=== PATIENT | male | born 1960 | race Caucasian/White ===

== ENCOUNTER 2018-09-08 06:54 | Day surgery (SDC) | payer OTHER ==
[2018-09-08] MEDS ORDERED: Lidocaine 1% with EPINEPHrine 1:100,000 50 ML MDV ONE (06:56)
[2018-09-08] MEDS ORDERED: Bupivacaine 0.5% 50 ML MDV ONE (06:56)
[2018-09-08] MEDS ORDERED: Midazolam 1 MG/ML 2 ML SDV ONE (07:32)
[2018-09-08] MEDS ORDERED: fentaNYL 100 MCG/2 ML SDV ONE (07:32)
[2018-09-08] MEDS ORDERED: Propofol 200 MG/20 ML SDV ONE ×2 (07:32→08:40)
[2018-09-08] MEDS ORDERED: Dextrose 5%-Lactated Ringers 1,000 ML IV SCH (07:45)
[2018-09-08] MEDS: ceFAZolin 2 GM in Premix Bag 1 BAG IV ONE ×2 (07:45→08:25)
[2018-09-08] MEDS ORDERED: Acetaminophen/HYDROcodone 325-5 MG Tab PO PRN (10:30)
--- NOTE | 2018-09-08 11:31 | OR ---
DATE OF PROCEDURE: 09/08/2018 PREOPERATIVE DIAGNOSIS: Umbilical hernia. POSTOPERATIVE DIAGNOSIS: Umbilical hernia. PROCEDURE: Repair of umbilical hernia with a 6.4 cm in diameter, Ventralex mesh patch with straps. SURGEON: Maicol Dowell MD ANESTHESIA: IV anesthesia with monitored anesthesia care. INDICATION: This 58-year-old white male is here for repair of his umbilical hernia. He denies predisposing factors for hernia formation. No signs or symptoms of incarceration or obstruction. I counseled him for repair of this with mesh, including risks and alternatives, and he gave his informed consent to proceed. DESCRIPTION OF PROCEDURE: The patient was placed in the left lateral decubitus position. IV anesthesia was administered by the Anesthesia Service. Time-out was held. The leg compression stockings were in place and used during the entire procedure. An infraumbilical semicircular incision was made. The umbilical hernia was divided from the overlying umbilical skin. The contents, which consisted of omentum, were excised and sent to the lab. The defect was large enough that we could get a 6.4 cm in diameter, Ventralex mesh patch with straps through the defect. This was then done. The straps were grasped and elevated, bringing the mesh nicely against the posterior aspect of the fascia. The straps were cut to appropriate length and anchored to the anterior fascia with 2-0 Vicryl suture. A 2-0 Vicryl suture was used to close the fascia over the mesh. This stitch was also used to anchor the umbilical skin to the underlying fascia. All looked well. The skin was closed with a subcuticular stitch of 4-0 Vicryl. Dermabond was applied. The patient tolerated the procedure well and was brought to the recovery room in good condition. Maicol Dowell MD /[id number]
[2018-09-08 11:35] VITALS: BP 121/67
== END 2018-09-08 11:40 | disposition home or self-care (01) ==
LOC: JP.SDS 06:54
PROVIDERS: ATTEND Surgery
DX: K42.9 Umbilical hernia without obstruction or gangrene (principal); K21.9 Gastro-esophageal reflux disease without esophagitis; I10 Essential (primary) hypertension
CPT/HCPCS: 49585; A9270; C1781; J0690; J2250; J2704; J3010; J3490; J7042

== ENCOUNTER 2020-01-31 02:19 | Emergency (ER) | payer OTHER ==
[2020-01-31] MEDS ORDERED: Lidocaine 1% with EPINEPHrine 1:100,000 50 ML MDV INFILT ONE (02:45)
[2020-01-31] MEDS ORDERED: Bacitracin Oint 1 GM U/D Packet TOP ONE (02:46)
[2020-01-31 03:03] VITALS: BP 140/75; PULSE 57
--- NOTE | 2020-01-31 03:27 | EDM.PDOC ---
ED HPI GENERAL MEDICAL PROBLEM - General Chief Complaint: Laceration Stated Complaint: CUT LEFT FOOT Time Seen by Provider: 01/31/20 02:40 Source of Information: Reports: Patient, Family History Limitations: Reports: Intoxication - History of Present Illness INITIAL COMMENTS - FREE TEXT/NARRATIVE: 59-year-old male arrives with a laceration to his left lower leg. He struck his leg on the edge of a dock about 2-1/2 hours ago, did not realize he had a significant injury until about 1/2-hour ago when he noticed bleeding. No other injury. Onset: Sudden Duration: Hour(s): (2-1/2 hours ago) Location: Reports: Lower Extremity, Left Associated Symptoms: Reports: No Other Symptoms - Related Data Allergies Allergy/AdvReac Type Severity Reaction Status Date / Time No Known Allergies Allergy Verified 01/31/20 02:34 Home Meds: Home Meds Lisinopril 30 mg PO DAILY 11/14/15 [History] Zonisamide [Zonegran] 300 mg PO DAILY 11/14/15 [History] amLODIPine Besylate [Norvasc] 10 mg PO DAILY 02/19/18 [History] Aspirin [Adult Aspirin] 81 mg PO DAILY 09/06/18 [History] Glucosa Hernández 2KCl/Chondroitin Hernández [Glucosamine Chondroitin Caplet] 1 each PO DAILY 09/06/18 [History] Ibuprofen [Advil] 200 mg PO DAILY PRN 09/06/18 [History] Multivitamin with Minerals [Multiple Vitamin] 1 tab PO DAILY 09/06/18 [History] Omeprazole Magnesium [Prilosec Otc] 20 mg PO DAILY 09/06/18 [History] Past Medical History HEENT History: Reports: Impaired Vision, Other (See Below) Other HEENT History: cough at night Cardiovascular History: Reports: Hypertension Gastrointestinal History: Reports: GERD Musculoskeletal History: Reports: Other (See Below) Other Musculoskeletal History: decreased L shoulder movement Neurological History: Reports: Seizure Endocrine/Metabolic History: Reports: None - Infectious Disease History Infectious Disease History: Reports: Chicken Pox - Past Surgical History Head Surgeries/Procedures: Reports: None HEENT Surgical History: Reports: Tonsillectomy Cardiovascular Surgical History: Reports: None GI Surgical History: Reports: Colostomy Endocrine Surgical History: Reports: None Neurological Surgical History: Reports: None Musculoskeletal Surgical History: Reports: Shoulder Surgery Dermatological Surgical History: Reports: None Social & Family History - Family History Family Medical History: Noncontributory - Tobacco Use Smoking Status *Q: Former Smoker Used Tobacco, but Quit: Yes Month/Year Tobacco Last Used: 2009 Second Hand Smoke Exposure: No - Caffeine Use Caffeine Use: Reports: Coffee - Alcohol Use Days Per Week of Alcohol Use: 2 Number of Drinks Per Day: 6 Total Drinks Per Week: 12 - Recreational Drug Use Recreational Drug Use: No ED ROS GENERAL - Review of Systems Review Of Systems: See Below Constitutional: Denies: Fever, Chills Respiratory: Denies: Shortness of Breath Cardiovascular: Denies: Chest Pain GI/Abdominal: Denies: Nausea, Vomiting Musculoskeletal: Reports: No Symptoms (No bony tenderness in the leg) Neurological: Reports: Other (Patient is fairly intoxicated but cooperative) ED EXAM, SKIN/RASH Exam: See Below Exam Limited By: Intoxication General Appearance: Alert, No Apparent Distress Respiratory/Chest: No Respiratory Distress Cardiovascular: Regular Rate, Rhythm Extremities: Other (Exam is otherwise limited the lower extremities. The right leg is normal, the left leg has a 9 cm V-shaped flap laceration fairly deep into the subcutaneous tissue on the lower anterior leg above the ankle. Bleeding is controlled.) Course - Vital Signs Last Recorded V/S: Last Vital Signs Temp 96.2 F L 01/31/20 02:42 Pulse 57 L 01/31/20 02:42 Resp 16 01/31/20 02:42 BP 140/75 01/31/20 02:42 Pulse Ox 97 01/31/20 02:42 - Orders/Labs/Meds Meds: Medications Discontinued Medications Generic Name Dose Route Start Last Admin Trade Name Ky PRN Reason Stop Dose Admin Bacitracin 1 dose 01/31/20 02:46 01/31/20 03:11 Bacitracin Oint 1 Gm TOP 01/31/20 02:47 1 dose ONETIME ONE Administration Lidocaine/Epinephrine 30 ml 01/31/20 02:45 01/31/20 03:11 Xylocaine 1% With Epinephrine 1:100,000 INFILT 01/31/20 02:46 30 ml ONETIME ONE Administration - Re-Assessments/Exams Free Text/Narrative Re-Assessment/Exam: 01/31/20 03:24 The area was infiltrated with 1% lidocaine and epinephrine. After anesthesia, the wound was thoroughly cleaned with saline and flushed several times with 10 cc of sterile saline. There was no foreign bodies found. Four 4-0 Vicryl sutures were used to close the subcutaneous tissue and 10 additional 4-0 Ethilon sutures were used to close the outside of the laceration. Topical bacitracin and a bandage was applied, his tetanus is current. He will keep the wound covered and clean, elevate when able, and sutures can be removed next Tuesday in 9 days. He will recheck sooner if concerns of infection or not healing satisfactorily. Departure - Departure Time of Disposition: 03:37 Disposition: Home, Self-Care 01 Clinical Impression: Laceration of left lower leg Qualifiers: Encounter type: initial encounter Qualified Code(s): S81.812A - Laceration without foreign body, left lower leg, initial encounter - Discharge Information Instructions: Laceration Care, Adult, [id number] Referrals: Mariano Jaime MD [Primary Care Provider] - Forms: ED Department Discharge Care Plan Goals: Keep wound covered and clean while healing, elevation may help with throbbing or pain. Ibuprofen or naproxen will also be helpful. Increase activity as tolerated and return February 07Tuesday afternoon for suture removal. If you are returning to the emergency room for suture removal Tuesday morning would also be appropriate. Recheck sooner if concerns of infection or not healing satisfactorily.
== END 2020-01-31 03:37 | disposition home or self-care (01) ==
LOC: JP.ED 02:19
DX: S81.812A Laceration without foreign body, left lower leg, initial encounter (principal); I10 Essential (primary) hypertension; K21.9 Gastro-esophageal reflux disease without esophagitis; Z87.891 Personal history of nicotine dependence; Z79.82 Long term (current) use of aspirin; Z79.899 Other long term (current) drug therapy; W22.8XXA Striking against or struck by other objects, initial encounter
CPT/HCPCS: 12034; 99282-25

== ENCOUNTER 2020-02-09 06:58 | Emergency (ER) | payer OTHER ==
--- NOTE | 2020-02-09 07:47 | EDM.PDOC ---
ED HPI GENERAL MEDICAL PROBLEM - General Stated Complaint: REMOVAL OF STITCHES Time Seen by Provider: 02/09/20 07:41 Source of Information: Reports: Patient History Limitations: Reports: No Limitations - History of Present Illness INITIAL COMMENTS - FREE TEXT/NARRATIVE: pt returns to have sutures removed. - Related Data Allergies Allergy/AdvReac Type Severity Reaction Status Date / Time No Known Allergies Allergy Verified 01/31/20 02:34 Home Meds: Home Meds Lisinopril 30 mg PO DAILY 11/14/15 [History] Zonisamide [Zonegran] 300 mg PO DAILY 11/14/15 [History] amLODIPine Besylate [Norvasc] 10 mg PO DAILY 02/19/18 [History] Aspirin [Adult Aspirin] 81 mg PO DAILY 09/06/18 [History] Glucosa Hernández 2KCl/Chondroitin Hernández [Glucosamine Chondroitin Caplet] 1 each PO DAILY 09/06/18 [History] Ibuprofen [Advil] 200 mg PO DAILY PRN 09/06/18 [History] Multivitamin with Minerals [Multiple Vitamin] 1 tab PO DAILY 09/06/18 [History] Omeprazole Magnesium [Prilosec Otc] 20 mg PO DAILY 09/06/18 [History] Past Medical History HEENT History: Reports: Impaired Vision, Other (See Below) Other HEENT History: cough at night Cardiovascular History: Reports: Hypertension Gastrointestinal History: Reports: GERD Musculoskeletal History: Reports: Other (See Below) Other Musculoskeletal History: decreased L shoulder movement Neurological History: Reports: Seizure Endocrine/Metabolic History: Reports: None - Infectious Disease History Infectious Disease History: Reports: Chicken Pox - Past Surgical History Head Surgeries/Procedures: Reports: None HEENT Surgical History: Reports: Tonsillectomy Cardiovascular Surgical History: Reports: None GI Surgical History: Reports: Colostomy Endocrine Surgical History: Reports: None Neurological Surgical History: Reports: None Musculoskeletal Surgical History: Reports: Shoulder Surgery Dermatological Surgical History: Reports: None Social & Family History - Family History Family Medical History: Noncontributory - Caffeine Use Caffeine Use: Reports: Coffee ED ROS GENERAL - Review of Systems Review Of Systems: See Below Constitutional: Reports: No Symptoms ED EXAM, SKIN/RASH Exam: See Below Text/Narrative:: pt returns to have sutures removed. Extremities: Other (pt has a wound on his left lower leg. He does have some redness around the wound. Sutures were removed without dificulty there is no drainage around the stitiches. The wound was steri stripped for support. I feel some of the redness is stitch reaction. Pt is to leave the steri strips in place for the next 3 days. ) Neurological: Alert, Oriented, Normal Cognition Departure - Departure Time of Disposition: 07:51 Disposition: Home, Self-Care 01 Clinical Impression: Visit for suture removal - Discharge Information Care Plan Goals: rtc if problems.
== END 2020-02-09 07:30 ==
LOC: JP.EDOUT 06:58 → JP.ED 06:58 → EDSTATUS 07:39
DX: Z48.02 Encounter for removal of sutures (principal)
CPT/HCPCS: 99281

== ENCOUNTER 2023-10-25 11:25 | Emergency (ER) | payer OTHER ==
[2023-10-25 14:50] LABS: BASOPHILS PERCENT AUTO 0.2 % (0.1-1.3); EOSINOPHILS ABSOLUTE AUTO 0.03 K/uL (0.00-0.40); EOSINOPHILS PERCENT AUTO 0.2 % (0.0-5.4); HEMATOCRIT 46.4 % (38.4-49.7); HEMOGLOBIN 16.1 g/dL (12.9-16.9); IMMATURE GRAN ABSOLUTE AUTO 0.03 K/uL (0.00-0.23); IMMATURE GRAN PERCENT AUTO 0.2 % (0.0-0.7); LYMPHOCYTES ABSOLUTE AUTO 1.04 K/uL (0.8-3.3); LYMPHOCYTES PERCENT AUTO 8.6 % (11.4-47.7); MEAN CORPUSCULAR HGB CONC 34.7 g/dL (31.6-35.5); MEAN CORPUSCULAR VOLUME 89.4 fL (81.4-99.0); MONOCYTES ABSOLUTE AUTO 1.32 K/uL (0.20-0.90); MONOCYTES PERCENT AUTO 10.9 % (3.3-12.6); NEUTROPHILS ABSOLUTE AUTO 9.72 K/uL (1.0-7.6); NEUTROPHILS PERCENT AUTO 79.9 % (40.0-78.1); PLATELET COUNT,PLT 129 K/uL (130-375); RED BLOOD CELL COUNT 5.19 M/uL (4.14-5.76); WHITE BLOOD CELL COUNT,WBC 12.2 K/uL (3.2-11.0)
[2023-10-25 14:54] LABS: BASOPHILS ABSOLUTE AUTO 0.02 K/uL (0.00-0.10)
[2023-10-25 15:21] LABS: A/G RATIO 1.1 (1.2-2.2); ALANINE AMINOTRANSFERASE,ALT 38 U/L (12-78); ALBUMIN 4.1 g/dL (3.4-5.0); ALKALINE PHOSPHATASE 84 U/L (46-116); ASPARTATE AMNIOTRANSFERASE,AST 21 U/L (15-37); BILIRUBIN TOTAL 0.5 mg/dL (0.2-1.0); BLOOD UREA NITROGEN,BUN 22 mg/dL (7-18); CALCIUM 8.9 mg/dL (8.5-10.1); CARBON DIOXIDE,CO2 24 mmol/L (21-32); CHLORIDE,CL 105 mmol/L (100-108); CREATININE 1.4 mg/dL (0.8-1.3); EST CRCL DRUG DOSING (CG) 56.77 mL/min; ESTIMATED GFR 56 mL/min (>60); GLUCOSE RANDOM 103 mg/dL (74-106); POTASSIUM,K 4.1 mmol/L (3.6-5.2); PROTEIN TOTAL,TP 7.7 g/dL (6.4-8.2); SODIUM,NA 138 mmol/L (140-148); TROPONIN I HIGH SENSITIVITY 14.3 pg/mL (<=60.3)
[2023-10-25 15:22] LABS: ANION GAP 13.1 mmol/L (5.0-14.0)
[2023-10-25 16:51] LABS: CORONAVIRUS COVID-19 NAA NEGATIVE (NEGATIVE); INFLUENZA A NAA NEGATIVE (NEGATIVE); INFLUENZA B NAA NEGATIVE (NEGATIVE); RESPIRATORY SYNCYTIAL VIR NAA NEGATIVE (NEGATIVE)
[2023-10-25 17:19] VITALS: BP 125/71; PULSE 61
== END 2023-10-25 17:54 | disposition home or self-care (01) ==
LOC: JP.ED 11:25
DX: B34.9 Viral infection, unspecified (principal); I10 Essential (primary) hypertension; K21.9 Gastro-esophageal reflux disease without esophagitis; Z86.16 Personal history of COVID-19; Z79.899 Other long term (current) drug therapy; Z79.82 Long term (current) use of aspirin; Z87.891 Personal history of nicotine dependence
CPT/HCPCS: 0241U; 36415; 71046; 80053; 83605; 83880; 84484; 85025; 93005; 99285

== ENCOUNTER 2024-11-02 15:02 | Emergency (ER) | payer MEDICARE, OTHER ==
[2024-11-02] MEDS: Sodium Chloride 0.9% 1,000 ML IV SCH (16:51)
[2024-11-02 16:53] LABS: BASOPHILS PERCENT AUTO 0.3 % (0.1-1.3); EOSINOPHILS ABSOLUTE AUTO 0.21 K/uL (0.00-0.40); EOSINOPHILS PERCENT AUTO 3.5 % (0.0-5.4); HEMOGLOBIN 14.2 g/dL (12.9-16.9); IMMATURE GRAN PERCENT AUTO 0.3 % (0.0-0.7); LYMPHOCYTES ABSOLUTE AUTO 1.77 K/uL (0.8-3.3); LYMPHOCYTES PERCENT AUTO 29.9 % (11.4-47.7); MEAN CORPUSCULAR HEMOGLOBIN 30.8 pg (31.6-35.5); MEAN CORPUSCULAR HGB CONC 33.8 g/dL (31.6-35.5); MEAN CORPUSCULAR VOLUME 91.1 fL (81.4-99.0); MONOCYTES ABSOLUTE AUTO 0.63 K/uL (0.20-0.90); MONOCYTES PERCENT AUTO 10.6 % (3.3-12.6); NEUTROPHILS ABSOLUTE AUTO 3.27 K/uL (1.0-7.6); NEUTROPHILS PERCENT AUTO 55.4 % (40.0-78.1); PLATELET COUNT,PLT 135 K/uL (130-375); RED BLOOD CELL COUNT 4.61 M/uL (4.14-5.76); WHITE BLOOD CELL COUNT,WBC 5.9 K/uL (3.2-11.0)
[2024-11-02 16:54] LABS: BASOPHILS ABSOLUTE AUTO 0.02 K/uL (0.00-0.10); IMMATURE GRAN ABSOLUTE AUTO 0.02 K/uL (0.00-0.23)
[2024-11-02] MEDS: Morphine 2 MG/ML SYRINGE IVPUSH ONE (16:54)
[2024-11-02 17:14] LABS: A/G RATIO 1.1 (1.2-2.2); ALANINE AMINOTRANSFERASE,ALT 32 U/L (12-78); ALBUMIN 3.6 g/dL (3.4-5.0); ALKALINE PHOSPHATASE 88 U/L (46-116); ANION GAP 12.4 mmol/L (5.0-14.0); ASPARTATE AMNIOTRANSFERASE,AST 15 U/L (15-37); BILIRUBIN TOTAL 0.3 mg/dL (0.2-1.0); BLOOD UREA NITROGEN,BUN 20 mg/dL (7-18); CALCIUM 8.9 mg/dL (8.5-10.1); CARBON DIOXIDE,CO2 22 mmol/L (21-32); CHLORIDE,CL 107 mmol/L (100-108); CREATININE 1.2 mg/dL (0.8-1.3); EST CRCL DRUG DOSING (CG) 65.36 mL/min; ESTIMATED GFR 67 mL/min (>60); GLUCOSE RANDOM 105 mg/dL (74-106); POTASSIUM,K 3.9 mmol/L (3.6-5.2); PROTEIN TOTAL,TP 6.9 g/dL (6.4-8.2); SODIUM,NA 141 mmol/L (140-148)
[2024-11-02] MEDS: Sodium Chloride 0.9% 10 ML Syringe FLUSH ONE (18:06)
[2024-11-02] MEDS: Iopamidol 612 MG/ML 100 ML Bottle IV SCH (18:06)
[2024-11-02] MEDS: Sodium Chloride 0.9% 80 ML IV SCH (18:08)
[2024-11-02 18:13] LABS: APPEARANCE,URINE CLEAR (CLEAR); BILIRUBIN,URINE NEGATIVE (NEGATIVE); COLOR,URINE YELLOW (YELLOW); GLUCOSE,URINE NEGATIVE (NEGATIVE); KETONES,URINE 15 mg/dL (NEGATIVE); LEUKOCYTE ESTERASE,URINE NEGATIVE (NEGATIVE); NITRITE,URINE NEGATIVE (NEGATIVE); OCCULT BLOOD,URINE NEGATIVE (NEGATIVE); PH,URINE 6.5 (5.0-8.0); PROTEIN,URINE NEGATIVE (NEGATIVE); UROBILINOGEN,URINE 0.2 EU/dL (0.2-1.0)
[2024-11-02 18:17] LABS: AMORPHOUS SEDIMENT,URINE NOT SEEN; BACTERIA,URINE FEW; EPITHELIAL CELLS,URINE RARE; MUCUS,URINE FEW; RBC,URINE 0-5 (0-5)
[2024-11-02 18:19] VITALS: BP 154/55; PULSE 48
== END 2024-11-02 19:35 | disposition home or self-care (01) ==
LOC: JP.ED 15:02
DX: K57.32 Diverticulitis of large intestine without perforation or abscess without bleeding (principal); I10 Essential (primary) hypertension; K21.9 Gastro-esophageal reflux disease without esophagitis; Z79.82 Long term (current) use of aspirin; Z79.899 Other long term (current) drug therapy
CPT/HCPCS: 36415; 74177; 80053; 81001; 83605; 85025; 96374; 99284; J2270; J7030; Q9967